=== PATIENT | male | born 1960 | race Caucasian/White ===

== ENCOUNTER → 2016-04-07 | Outpatient (CLI) | payer BC ==
--- NOTE | 2016-04-07 14:01 | US ---
EXAMINATION TYPE: US scrotum with doppler. TECHNIQUE: Multiple sonographic images of the scrotum were obtained. Color Doppler and spectral wavef orm analysis of the testicular arteries and veins. DATE OF EXAM: 04/07/2016 10:56 AM COMPARISON: NONE CLINICAL HISTORY: 55-year-old male, a routine physical the doctor felt a palpable finding at the mid lateral scrotal area. FINDINGS: TESTICLES: Right Testicle: 4.1 x 2.5 x 3.3 cm Left Testicle: 3.9 x 2.1 x 2.8 cm Testicles show homogeneous echotexture without hyperemia. Satisfactory arterial and venous flow is se en on both sides. EPIDIDYMIS HEAD: Right Epididymis: 1.8 x 1.0 cm Left Epididymis: 1.2 x 0.8 cm No hyperemia on either side. Presence of hydroceles: Small to moderate on both sides. Presence of varicoceles: Small varicoceles on the left. Scanning along the right lateral scrotal sac at the site of patient's kinesiology internship shows normal appearing e pididymal body and tail. IMPRESSION: 1. No sonographic evidence for testicular torsion or epididymoorchitis. 2. Small to moderate bilateral hydroceles and a small left-sided hydrocele. 3. Targeted scanning right lateral scrotum at the site of patient's concern shows normal appearing ep ididymal body and tail.
== END | disposition home or self-care (01) ==
LOC: RADUSWWP 10:17
PROVIDERS: ATTEND Internal Medicine
DX: N43.3 Hydrocele, unspecified (principal)
CPT/HCPCS: 76870; 93975

== ENCOUNTER 2016-05-19 06:58 | Day surgery (SDC) | payer BC ==
[2016-05-17 15:04] VITALS: BMI 31.9
[~2016-05-19 06:58] MED LIST: LACTATED RINGERS 1,000 ML IV SCH; LIDOCAINE 1% 20 ML VIAL (10MG/ML) FOR IV START INTRADERMA PRN
[2016-05-19] MEDS ORDERED: LACTATED RINGERS 1,000 ML IV ONE (07:10)
[2016-05-19 07:14] VITALS: TEMP 97
[2016-05-19 07:25] LABS: Glucose,Whole Blood 165 mg/dL (75-99)
[2016-05-19] MEDS ORDERED: PROPOFOL 10 MG/ML 20 ML VIAL IV ONE (08:33)
[2016-05-19] MEDS ORDERED: fentaNYL (PF) 50 MCG/ML 2 ML AMP ONE (08:33)
[2016-05-19] MEDS ORDERED: MIDAZOLAM 2 MG/2 ML VIAL ONE (08:33)
--- NOTE | 2016-05-19 08:55 | P.PCN ---
Date of Procedure: 05/19/16 Procedure(s) Performed: Procedure: Esophagogastroduodenoscopy and biopsy. Preoperative diagnosis: Dysphagia. Postoperative diagnosis: Mild gastritis. Preparation and sedation: Was provided by anesthesia. Brief clinical history: The patient is a 55-year-old male who I have evaluated in the office this month regarding intermittent episodes of dysphagia that he has had for the last 2 years. No significant reflux disease or alarm symptoms. He had around 10 episodes over the last 2 years. This evaluation is to assess for complicated reflux disease, mucosal ring or other pathology. Procedure: With the patient on his left lateral decubitus position and after informed consent and adequate sedation, I passed the Olympus-GIF 160 video upper endoscope through the cricopharyngeus down the esophagus. The esophagus appeared healthy with no obvious erosions, ulcers, strictures or Knox's esophagus. GE junction was around 41 cm from the incisors and there was no definite hiatal hernia. I did not notice any mucosal rings or other pathology. The endoscope was then passed into the stomach which was insufflated with air and inspected in detail including the retroflex view in the cardia. There was some mottling and erythema in the antrum but no ulcers or erosions. Pyloric channel, duodenal bulb, post bulbar area and descending duodenum showed minimal erythema. I obtained multiple biopsies from the duodenum, antrum and esophagus before the endoscope was withdrawn. I took a picture in the retroflex view in the cardia to demonstrate that there was no restriction around the endoscope in the distal esophagus. No dilation was indicated. The patient tolerated the procedure well. Plan: The patient was reassured. Will await biopsy results. If he continues to be symptomatic and especially if there is nutritional compromise, I would recommend motility studies in the future. He will follow up with you as planned.
[2016-05-19 09:04] LABS: Glucose,Whole Blood 145 mg/dL (75-99)
[2016-05-19 09:36] VITALS: BP 137/68; PULSE 66; RESP 18
== END 2016-05-19 09:58 | disposition home or self-care (01) ==
LOC: ORWHC2ENDO 06:58
DX: K29.50 Unspecified chronic gastritis without bleeding (principal); K20.9 Esophagitis, unspecified; G43.909 Migraine, unspecified, not intractable, without status migrainosus; Z79.82 Long term (current) use of aspirin; Z79.899 Other long term (current) drug therapy
CPT/HCPCS: 88305; 88342; 43239; J2250; J3010; J2704

== ENCOUNTER 2018-04-10 11:53 | Inpatient (IN) | payer BC ==
--- NOTE | 2018-04-10 12:45 | ED ---
General Adult HPI - General Chief complaint: Shortness of Breath Stated complaint: SOB, chest pain Time Seen by Provider: 04/10/18 12:15 Source: patient, RN notes reviewed Mode of arrival: ambulatory Limitations: no limitations - History of Present Illness Initial comments: This is a 57-year-old male who has past medical history significant for asthma. Dr. Bourne saw him in his office today and wanted the patient to come in to the emergency department to get admitted. Patient states she's had a cough over the last few days and some shortness of breath. Dr. Bourne saw the patient and gave him a breathing treatment as well as a chest x-ray and some steroids. Patient states he still is short of breath and feels very tight. Patient states he is coughing quite a bit but not coughing up a lot of sputum. Patient denies any abdominal pain patient denies nausea vomiting diarrhea. - Related Data Home Medications Medication Instructions Recorded Confirmed Kiiqudbvyu-BRK-[id number]-Codeine 1 tab PO BID PRN 05/17/16 04/10/18 [Fiorinal w/Cod 11-452-34-30MG] Naratriptan HCl [Naratriptan] 2.5 mg PO DAILY PRN 05/17/16 04/10/18 Losartan Potassium 100 mg PO DAILY 04/10/18 04/10/18 Rosuvastatin [Crestor] 10 mg PO DAILY 04/10/18 04/10/18 sitaGLIPtin PHOS/metFORMIN HCL 1 tab PO DAILY 04/10/18 04/10/18 [Janumet 50-1,000 mg Tablet] Allergies Allergy/AdvReac Type Severity Reaction Status Date / Time ANTIBIOTIC (UNKNOWN) Allergy Unknown Uncoded 04/10/18 13:39 Review of Systems ROS Statement: Those systems with pertinent positive or pertinent negative responses have been documented in the HPI. ROS Other: All systems not noted in ROS Statement are negative. Past Medical History Past Medical History: Asthma, Diabetes Mellitus Additional Past Medical History / Comment(s): MIGRAINES, PAST HX OF ASTHMA (10 YRS AGO), COUGH FOR LAST YEAR., DYSPHAGIA. , DIET CONTROLLED DIABETES. History of Any Multi-Drug Resistant Organisms: None Reported Past Surgical History: Orthopedic Surgery Additional Past Surgical History / Comment(s): MARCELA SHOULDER SURGERY, COLONOSCOPY 'S Past Anesthesia/Blood Transfusion Reactions: No Reported Reaction Past Psychological History: No Psychological Hx Reported Smoking Status: Never smoker Past Alcohol Use History: Occasional Past Drug Use History: None Reported - Past Family History Mother Family Medical History: Cancer Additional Family Medical History / Comment(s): BREAST CANCER General Exam - General Exam Comments Initial Comments: GENERAL: Patient is well-developed and well-nourished. Patient is nontoxic and well- hydrated and is in mild distress. I took the patient's temperature in the patient's temperature is 101.4. ENT: Neck is soft and supple. No significant lymphadenopathy is noted. Oropharynx is clear. Moist mucous membranes. Neck has full range of motion without eliciting any pain. EYES: The sclera were anicteric and conjunctiva were pink and moist. Extraocular movements were intact and pupils were equal round and reactive to light. Eyelids were unremarkable. PULMONARY: Patient has diffuse x-ray wheezing. Patient has crackles in the left base. CARDIOVASCULAR: There is a regular rate and rhythm without any murmurs gallops or rubs. ABDOMEN: Soft and nontender with normal bowel sounds. No palpable organomegaly was noted. There is no palpable pulsatile mass. SKIN: Skin is clear with no lesions or rashes and otherwise unremarkable. NEUROLOGIC: Patient is alert and oriented x3. Cranial nerves II through XII are grossly intact. Motor and sensory are also intact. Normal speech, volume and content. Symmetrical smile. MUSCULOSKELETAL: Normal extremities with adequate strength and full range of motion. No lower extremity swelling or edema. No calf tenderness. LYMPHATICS: No significant lymphadenopathy is noted PSYCHIATRIC: Normal psychiatric evaluation. Limitations: no limitations Course Vital Signs 04/10/18 04/10/18 04/10/18 12:14 12:49 13:00 Temperature 99.5 F 101.4 F H Pulse Rate 86 79 Respiratory 18 24 Rate Blood Pressure 146/87 152/91 O2 Sat by Pulse 98 97 Oximetry 04/10/18 04/10/18 04/10/18 13:15 13:30 14:00 Temperature Pulse Rate 88 93 Respiratory 18 Rate Blood Pressure 147/103 159/74 O2 Sat by Pulse Oximetry 04/10/18 04/10/18 04/10/18 14:30 15:00 15:30 Temperature Pulse Rate 98 78 76 Respiratory 14 21 19 Rate Blood Pressure 159/74 118/87 147/78 O2 Sat by Pulse 96 Oximetry 04/10/18 15:36 Temperature 99.4 F Pulse Rate Respiratory Rate Blood Pressure O2 Sat by Pulse Oximetry Medical Decision Making - Medical Decision Making EKG shows normal sinus rhythm at 84 bpm IN interval is 138 QRS is 122 QT interval 370 QTC is 437. Patient's EKG shows no ST segment elevation or depression. Patient does have Q waves in leads 3 and aVF. Chest x-ray showed no acute abnormality. I spoke with Dr. Gonzalez agreed to admit the patient I admitted the patient I consulted ER. Patient received steroids in the office I will continue steroids in patient. Also patient received albuterol the office as well as emergency department and he still continues to wheeze and I will continue that as an inpatient. - Lab Data Result diagrams: 04/10/18 13:14 04/10/18 13:14 Lab Results 04/10/18 04/10/18 04/10/18 Range/Units 13:14 13:14 13:14 WBC 6.6 (3.8-10.6) k/uL RBC 5.01 (4.30-5.90) m/uL Hgb 14.7 (13.0-17.5) gm/dL Hct 45.3 (39.0-53.0) % MCV 90.4 (80.0-100.0) fL MCH 29.3 (25.0-35.0) pg MCHC 32.4 (31.0-37.0) g/dL RDW 13.3 (11.5-15.5) % Plt Count 180 (150-450) k/uL Neutrophils % 64 % Lymphocytes % 17 % Monocytes % 11 % Eosinophils % 4 % Basophils % 1 % Neutrophils # 4.3 (1.3-7.7) k/uL Lymphocytes # 1.1 (1.0-4.8) k/uL Monocytes # 0.7 (0-1.0) k/uL Eosinophils # 0.2 (0-0.7) k/uL Basophils # 0.1 (0-0.2) k/uL PT (9.0-12.0) sec INR (<1.2) APTT (22.0-30.0) sec Sodium 137 (137-145) mmol/L Potassium 4.5 (3.5-5.1) mmol/L Chloride 103 (98-107) mmol/L Carbon Dioxide 24 (22-30) mmol/L Anion Gap 10 mmol/L BUN 9 (9-20) mg/dL Creatinine 0.91 (0.66-1.25) mg/dL Est GFR (CKD-EPI)AfAm >90 (>60 ml/min/1.73 sqM) Est GFR (CKD-EPI)NonAf >90 (>60 ml/min/1.73 sqM) Glucose 139 H (74-99) mg/dL Plasma Lactic Acid Liban 1.1 (0.7-2.0) mmol/L Calcium 9.0 (8.4-10.2) mg/dL Total Bilirubin 0.4 (0.2-1.3) mg/dL AST 42 (17-59) U/L ALT 62 (21-72) U/L Alkaline Phosphatase 51 (38-126) U/L Troponin I (0.000-0.034) ng/mL Total Protein 7.0 (6.3-8.2) g/dL Albumin 4.1 (3.5-5.0) g/dL Urine Color Urine Appearance (Clear) Urine pH (5.0-8.0) Ur Specific Ferguson (1.001-1.035) Urine Protein (Negative) Urine Glucose (UA) (Negative) Urine Ketones (Negative) Urine Blood (Negative) Urine Nitrite (Negative) Urine Bilirubin (Negative) Urine Urobilinogen (<2.0) mg/dL Ur Leukocyte Esterase (Negative) Urine RBC (0-5) /hpf Urine WBC (0-5) /hpf Urine Mucus (None) /hpf 04/10/18 04/10/18 04/10/18 Range/Units 13:14 13:14 13:14 WBC (3.8-10.6) k/uL RBC (4.30-5.90) m/uL Hgb (13.0-17.5) gm/dL Hct (39.0-53.0) % MCV (80.0-100.0) fL MCH (25.0-35.0) pg MCHC (31.0-37.0) g/dL RDW (11.5-15.5) % Plt Count (150-450) k/uL Neutrophils % % Lymphocytes % % Monocytes % % Eosinophils % % Basophils % % Neutrophils # (1.3-7.7) k/uL Lymphocytes # (1.0-4.8) k/uL Monocytes # (0-1.0) k/uL Eosinophils # (0-0.7) k/uL Basophils # (0-0.2) k/uL PT 10.1 (9.0-12.0) sec INR 0.9 (<1.2) APTT 25.9 (22.0-30.0) sec Sodium (137-145) mmol/L Potassium (3.5-5.1) mmol/L Chloride (98-107) mmol/L Carbon Dioxide (22-30) mmol/L Anion Gap mmol/L BUN (9-20) mg/dL Creatinine (0.66-1.25) mg/dL Est GFR (CKD-EPI)AfAm (>60 ml/min/1.73 sqM) Est GFR (CKD-EPI)NonAf (>60 ml/min/1.73 sqM) Glucose (74-99) mg/dL Plasma Lactic Acid Liban (0.7-2.0) mmol/L Calcium (8.4-10.2) mg/dL Total Bilirubin (0.2-1.3) mg/dL AST (17-59) U/L ALT (21-72) U/L Alkaline Phosphatase (38-126) U/L Troponin I <0.012 (0.000-0.034) ng/mL Total Protein (6.3-8.2) g/dL Albumin (3.5-5.0) g/dL Urine Color Yellow Urine Appearance Clear (Clear) Urine pH 6.0 (5.0-8.0) Ur Specific Ferguson 1.016 (1.001-1.035) Urine Protein Negative (Negative) Urine Glucose (UA) Trace H (Negative) Urine Ketones Negative (Negative) Urine Blood Trace H (Negative) Urine Nitrite Negative (Negative) Urine Bilirubin Negative (Negative) Urine Urobilinogen <2.0 (<2.0) mg/dL Ur Leukocyte Esterase Negative (Negative) Urine RBC 4 (0-5) /hpf Urine WBC 1 (0-5) /hpf Urine Mucus Occasional H (None) /hpf Critical Care Time Critical Care Time: Yes Total Critical Care Time: 35 Disposition Clinical Impression: Asthma with exacerbation, Acute bronchitis Disposition: ADMITTED IP TO THIS HOSP Referrals: Braden Gonzalez MD [Primary Care Provider] - 1-2 days Time of Disposition: 16:10
[2018-04-10] MEDS ORDERED: IBUPROFEN 600 MG TAB PO STA (12:52)
[2018-04-10] MEDS ORDERED: ACETAMINOPHEN TAB 500 MG TAB PO STA (12:52)
[2018-04-10] MEDS ORDERED: ALBUTEROL NEBULIZED (CONC) 5 MG, SODIUM CHLORIDE 0.9% NEBULIZ 3 ML INHALATION STA ×2 (12:53)
[2018-04-10] MEDS ORDERED: cefTRIAXone 2,000 MG in SODIUM CHLORIDE 0.9% 100 ML IVPB STA (12:54)
[2018-04-10] MEDS ORDERED: ALBUTEROL NEBULIZED 2.5 MG/3 ML INHALATION STA (13:08)
[2018-04-10] MEDS: SODIUM CHLORIDE 0.9% 500 ML 500 ML IV SCH ×2 (13:40→14:59)
[2018-04-10 13:49] LABS: ALT 62 U/L (21-72); AST 42 U/L (17-59); Albumin 4.1 g/dL (3.5-5.0); Alkaline Phosphatase 51 U/L (38-126); Anion Gap 10 mmol/L; Blood Urea Nitrogen 9 mg/dL (9-20); Carbon Dioxide 24 mmol/L (22-30); Chloride 103 mmol/L (98-107); Glucose 139 mg/dL (74-99); Potassium 4.5 mmol/L (3.5-5.1); Sodium 137 mmol/L (137-145); Total Bilirubin 0.4 mg/dL (0.2-1.3)
[2018-04-10 13:54] LABS: INR 0.9 (<1.2); Partial Thromboplastin Time 25.9 sec (22.0-30.0); Prothrombin Time 10.1 sec (9.0-12.0)
[2018-04-10 13:57] LABS: Basophils # (A) 0.1 k/uL (0-0.2); Basophils % (A) 1 %; Eosinophils # (A) 0.2 k/uL (0-0.7); Eosinophils % (A) 4 %; HCT 45.3 % (39.0-53.0); HGB 14.7 gm/dL (13.0-17.5); Lymphocytes # (A) 1.1 k/uL (1.0-4.8); Lymphocytes % (A) 17 %; MCH 29.3 pg (25.0-35.0); MCHC 32.4 g/dL (31.0-37.0); MCV 90.4 fL (80.0-100.0); Monocytes # (A) 0.7 k/uL (0-1.0); Monocytes % (A) 11 %; Neutrophils # (A) 4.3 k/uL (1.3-7.7); Neutrophils % (A) 64 %; Platelet Count 180 k/uL (150-450); RBC 5.01 m/uL (4.30-5.90); RDW 13.3 % (11.5-15.5); WBC 6.6 k/uL (3.8-10.6)
[2018-04-10 14:06] LABS: Appearance,Urine Clear (Clear); Bilirubin,Urine Negative (Negative); Blood,Urine Trace (Negative); Color,Urine Yellow; Glucose,Urine (UA) Trace (Negative); Ketones,Urine Negative (Negative); Leukocyte Esterase,Urine Negative (Negative); Mucus,Urine Occasional /hpf; Nitrite,Urine Negative (Negative); Protein,Urine Negative (Negative); RBC,Urine 4 /hpf (0-5); Specific Gravity,Urine 1.016 (1.001-1.035); Urobilinogen,Urine <2.0 mg/dL (<2.0); WBC,Urine 1 /hpf (0-5)
--- NOTE | 2018-04-10 14:29 | XR ---
EXAMINATION TYPE: XR chest 2V DATE OF EXAM: 04/10/2018 COMPARISON: Prior chest x-ray January 27, 2013. Prior CT April 09, 2014. Pulmonary Chest x-ray thad ier today. HISTORY: Fever. TECHNIQUE: Frontal and lateral views of the chest are obtained. FINDINGS: There is some chronic parenchymal change without suspicious focal air space opacity, pleur al effusion, or pneumothorax seen. The cardiac silhouette size is within normal limits. The osseou s structures are intact. Overlying EKG leads are noted. IMPRESSION: No new suspicious focal acute infiltrate.
[2018-04-10] MEDS ORDERED: ALBUTEROL NEB (CONC) 2.5 MG/0.5 ML INHALATION SCH (16:00)
[2018-04-10] MEDS ORDERED: AZITHROMYCIN 500 MG in SODIUM CHLORIDE 0.9% 250 ML IVPB STA (16:14)
[2018-04-10] MEDS ORDERED: PNEUMONIA PROTOCOL UTILIZED 1 EACH MISC PO PRN (16:14)
[2018-04-10] MEDS: ALBUTEROL NEBULIZED 2.5 MG/3 ML INHALATION SCH ×2 (16:30→19:44)
[2018-04-10] MEDS ORDERED: SUMAtriptan SUCCINATE 50 MG TAB PO PRN (16:40)
[2018-04-10] MEDS ORDERED: BENZOCAINE/MENTHOL LOZENG 1 EACH LOZENGE MUCOUS MEM PRN (17:01)
[2018-04-10] MEDS ORDERED: NALOXONE 0.4 MG/ML 1 ML VIAL IV PRN (17:01)
[2018-04-10] MEDS ORDERED: ACETAMINOPHEN TAB 325 MG TAB PO PRN (17:01)
[2018-04-10] MEDS ORDERED: traMADol 50 MG TAB PO PRN (17:01)
[2018-04-10] MEDS ORDERED: ONDANSETRON 4 MG/2 ML VIAL IVP PRN (17:01)
--- NOTE | 2018-04-10 17:39 | P.HPIM ---
History of Present Illness H&P Date: 04/10/18 (Acute asthmatic exacerbation with the purulent tracheobronchitis.) Chief Complaint: Harsh cough with expectoration greenish yellowish with shortness of breath History and physical dictation by Dr. Riaz M.D. [facility]. ALLERGY: Amoxicillin, Augmentin, penicillin, lisinopril, Lipitor. Chief complaint shortness of breath with feeling of tightness in the chest. And wheezing audible. History of present illness: 57 years old white male started on last Monday with coughing with some expectoration as well as wheezing progressed, patient controlled Dr. Bourne office and today Dr. Bourne did see him and send him to the emergency room at [facility] for admission. Subsequently Dr. Ross called me the primary care to admit the patient. I discussed it with the patient he stated that since Monday he started to have low-grade temperature and progressing in the wheezing and become on Adderall and he could not degrees he felt as well tight in the chest but no chest pain and no radiation of the pain to the neck or the arm but he could not take his breath, he called Dr. Rodriguez's office, they saw him Dr. Bourne and he send him to the emergency room after he received a chest x-ray and some injection over 60 right. Past medical history: Hyperlipidemia., Migraine headache, hypertension, and diabetes mellitus. Medication: He taken Fiorinal with codeine 1 tablet by mouth twice a day when necessary, he also taken naratriptan 2.5 mg by mouth daily when necessary, losartan 100 mg by mouth daily, Crestor 10 mg by mouth daily, sitagliptin/ metformin mg once a day for diabetes mellitus. He has ALLERGY to antibiotic but he doesn't know what and we will be rechecking the office chart. Family history noncontributory patient is and have children. Mother has cancer and history of breast cancer in the family. Past medical history bilateral shoulder surgery, colonoscopy, no smoke, no psychological problem no blood transfusion reaction. Review of system: 14. Has been reviewed however the actual problem orally was with the lung and wheezing audible and associated with shortness of breath. Examination [id number]. Patient is conscious alert oriented was seen in the emergency room modul #13. His at bedside. Patient is conscious alert oriented 3 able to tell the history. HEENT: Head was normocephalic and atraumatic pupil was equal reactive, hearing was normal, pharynx no erythema no sore throat, minimal postnasal discharge, Neck was supple no JVD no thyromegaly no lymphadenopathy trachea midline. Chest: Inspiratory and expiratory wheezes with coughing up occasional phlegm right with the low grade temperature. Heart: Regular sinus rhythm, no chest pain, Abdomen soft positive bowel sounds no organ enlargement. Extremities no edema and positive pulses. Genitourinary: No symptoms Neurologically: No lateralizing signs, no shakiness or tremors, cranial nerves is intact. Conscious alert oriented 3. Musculoskeletal currently total: Feeling sick with general malaise and weakness. Skin: No rashes. Assessment: None Acute asthmatic bronchitis with exacerbation #2 tracheobronchitis #3 post viral syndrome. #4 hyperlipidemia #5 migraine headache. #5 diabetes mellitus. #6 hypertension. #7 migraine headache intermittent. Plan: #1 bronchodilator number to steroids #3 inhalation therapy with budesonide. Number for continuation of these medication with a history of migraine headache antibiotic, currently on azithromycin and Rocephin. Patient admitted from Dr. Rodriguez office, pulmonary consultation with the pulmonary and critical resounding this week/Dr. Thomas . Monitor diabetes mellitus with C glucose, with insulin to scale with NovoLog./ Humalog. Past Medical History Past Medical History: Asthma, Diabetes Mellitus Additional Past Medical History / Comment(s): MIGRAINES, PAST HX OF ASTHMA (10 YRS AGO), COUGH FOR LAST YEAR., DYSPHAGIA. , DIET CONTROLLED DIABETES. History of Any Multi-Drug Resistant Organisms: None Reported Past Surgical History: Orthopedic Surgery Additional Past Surgical History / Comment(s): MARCELA SHOULDER SURGERY, COLONOSCOPY 'S Past Anesthesia/Blood Transfusion Reactions: No Reported Reaction Past Psychological History: No Psychological Hx Reported Smoking Status: Never smoker Past Alcohol Use History: Occasional Past Drug Use History: None Reported - Past Family History Mother Family Medical History: Cancer Additional Family Medical History / Comment(s): BREAST CANCER Medications and Allergies Home Medications Medication Instructions Recorded Confirmed Type Vbrnuxqgkn-JNF-Htmfxha-Codeine 1 tab PO BID PRN 05/17/16 04/10/18 History [Fiorinal w/Cod 13-882-30-30MG] Naratriptan HCl [Naratriptan] 2.5 mg PO DAILY PRN 05/17/16 04/10/18 History Losartan Potassium 100 mg PO DAILY 04/10/18 04/10/18 History Rosuvastatin [Crestor] 10 mg PO DAILY 04/10/18 04/10/18 History sitaGLIPtin PHOS/metFORMIN HCL 1 tab PO DAILY 04/10/18 04/10/18 History [Janumet 50-1,000 mg Tablet] Allergies Allergy/AdvReac Type Severity Reaction Status Date / Time ANTIBIOTIC (UNKNOWN) Allergy Unknown Uncoded 04/10/18 13:39 Physical Exam Vitals: Vital Signs Temp Pulse Resp BP Pulse Ox 04/10/18 15:36 99.4 F 04/10/18 15:30 76 19 147/78 04/10/18 15:00 78 21 118/87 04/10/18 14:30 98 14 159/74 96 04/10/18 14:00 159/74 04/10/18 13:30 93 18 147/103 04/10/18 13:15 88 04/10/18 13:00 79 24 152/91 97 04/10/18 12:49 101.4 F H 04/10/18 12:14 99.5 F 86 18 146/87 98 Intake and Output 04/10/18 04/10/18 04/10/18 06:59 14:59 22:59 Other: Weight 95.254 kg Results CBC & Chem 7: 04/10/18 13:14 04/10/18 13:14 Labs: Abnormal Lab Results - Last 24 Hours (Table) 04/10/18 04/10/18 Range/Units 13:14 13:14 Glucose 139 H (74-99) mg/dL Urine Glucose (UA) Trace H (Negative) Urine Blood Trace H (Negative) Urine Mucus Occasional H (None) /hpf
[2018-04-10] MEDS: methylPREDNISolone SOD SUCCI 125 MG/2 ML VIAL IV SCH (18:49)
[2018-04-10] MEDS: SODIUM CHLORIDE 0.9% 1,000 ML IV SCH (18:50)
[2018-04-10] MEDS: BUDESONIDE 0.5 MG/2 ML NEBU INHALATION SCH (19:44)
[2018-04-10] MEDS: INSULIN ASPART 100 UNIT/ML 1 ML 10 ML VIAL SQ SCH (21:41)
[2018-04-10 21:42] LABS: Glucose,Whole Blood 232 mg/dL (75-99)
[2018-04-11] MEDS: methylPREDNISolone SOD SUCCI 125 MG/2 ML VIAL IV SCH ×5 (00:57→23:39)
[2018-04-11 05:43] LABS: Hemoglobin A1C 7.1 % (4.0-6.0)
[2018-04-11] MEDS: BUDESONIDE 0.5 MG/2 ML NEBU INHALATION SCH (07:04)
[2018-04-11] MEDS: IPRATROPIUM-ALBUTEROL 3 ML NEB INHALATION PRN ×2 (07:04→11:08)
[2018-04-11] MEDS: ALBUTEROL NEBULIZED 2.5 MG/3 ML INHALATION SCH ×5 (07:04→19:46)
[2018-04-11 07:45] LABS: Glucose,Whole Blood 206 mg/dL (75-99)
[2018-04-11] MEDS: INSULIN ASPART 100 UNIT/ML 1 ML 10 ML VIAL SQ SCH ×4 (07:52→20:53)
[2018-04-11] MEDS: ATORVASTATIN 20 MG TAB PO SCH (08:08)
[2018-04-11] MEDS: LOSARTAN 50 MG TAB PO SCH (08:09)
[2018-04-11] MEDS: LINAGLIPTIN 5 MG TABLET PO SCH (08:09)
[2018-04-11] MEDS: ENOXAPARIN 40 MG/0.4 ML SYRINGE SQ SCH (08:09)
--- NOTE | 2018-04-11 08:27 | XR ---
EXAMINATION TYPE: XR chest 2V DATE OF EXAM: 04/11/2018 COMPARISON: 04/10/2018 INDICATION: Pneumonia, cough and congestion TECHNIQUE: Frontal and lateral views of the chest are obtained. FINDINGS: The heart size is normal. The pulmonary vasculature is normal. The lungs are clear. IMPRESSION: 1. No acute pulmonary process.
[2018-04-11] MEDS: BUTA/APAP/CAF/COD 50-325-40-30 CAP PO PRN ×2 (09:17→22:32)
[2018-04-11 10:03] LABS: Basophils % (A) 0 %; Eosinophils % (A) 0 %; HCT 46.8 % (39.0-53.0); HGB 15.3 gm/dL (13.0-17.5); Lymphocytes # (A) 0.6 k/uL (1.0-4.8); Lymphocytes % (A) 7 %; MCH 30.7 pg (25.0-35.0); MCHC 32.7 g/dL (31.0-37.0); Mean Platelet Volume 8.5; Monocytes # (A) 0.2 k/uL (0-1.0); Monocytes % (A) 2 %; Neutrophils # (A) 8.2 k/uL (1.3-7.7); Neutrophils % (A) 90 %; Platelet Count 202 k/uL (150-450); RBC 4.98 m/uL (4.30-5.90); RDW 13.4 % (11.5-15.5); WBC 9.1 k/uL (3.8-10.6)
[2018-04-11 10:16] LABS: ALT 49 U/L (21-72); AST 32 U/L (17-59); Albumin 4.2 g/dL (3.5-5.0); Alkaline Phosphatase 58 U/L (38-126); Anion Gap 13 mmol/L; Blood Urea Nitrogen 12 mg/dL (9-20); Calcium 9.7 mg/dL (8.4-10.2); Carbon Dioxide 23 mmol/L (22-30); Chloride 105 mmol/L (98-107); Glucose 290 mg/dL (74-99); Magnesium 2.2 mg/dL (1.6-2.3); Sodium 141 mmol/L (137-145); Total Bilirubin 0.3 mg/dL (0.2-1.3); Total Protein 7.3 g/dL (6.3-8.2)
[2018-04-11 11:55] LABS: Glucose,Whole Blood 254 mg/dL (75-99)
--- NOTE | 2018-04-11 12:25 | P.PN ---
Subjective Progress Note Date: 04/11/18 (Acute asthmatic bronchitis with exacerbation) Principal diagnosis: #1 acute asthmatic bronchitis with the exacerbation. #Diabetes mellitus type 2 with hyperglycemia. 3 hypertension. Progress notes: Patient seen and evaluated [id number] discussed with the patient and his . Patient seen today by Dr. Flores pulmonary physician as well, patient admitted through the emergency room by Dr. Rordiguez from the office. Vital sign temperature 97.5 pulse 59 regular sinus respiratory rate 15/m and blood pressure 124/67 and the saturation 95%. On the exam: HEENT negative no sore throat, still significant increase in inspiratory and expiratory, his oxygen saturation improved after the inhalation therapy to 95. Oropharynx negative, hearing normal. Neck was supple no JVD no thyromegaly no lymphadenopathy trachea midline. Chest: Inspiratory and expiratory wheezes bilateral. No dullness on percussion. Coughing. Heart: Regular sinus rhythm compensated. Abdomen: Soft positive bowel sounds no organ enlargement. Extremities no edema and positive pulses. Neurologically: Stable no lateralizing sign. He had headache migraine this morning and he received medication for it. Assessment: Acute tracheobronchitis with exacerbation associated with severe shortness of breath, treated in the office at Dr. Diez and send to the hospital for admission because of the severe shortness of breath. Hypertension Hyperlipidemia. Plan: Continue current medication with and cough syrup as well ALLERGY: AMOXICILLIN, Augmentin, penicillin, lisinopril, Lipitor. Objective - Vital Signs Vital signs: Vital Signs Temp 97.5 F L 04/11/18 06:04 Pulse 72 04/11/18 11:18 Resp 18 04/11/18 06:04 BP 144/67 04/11/18 06:04 Pulse Ox 95 04/11/18 06:04 Intake & Output 04/10/18 04/11/18 04/11/18 18:59 06:59 18:59 Output Total 1000 250 Balance -1000 -250 Weight 95.254 kg Output: Urine 1000 250 Other: # Voids 1 - Labs CBC & Chem 7: 04/11/18 09:07 04/11/18 09:07 Labs: Abnormal Lab Results - Last 24 Hours (Table) 04/10/18 04/10/18 04/10/18 Range/Units 13:14 13:14 13:14 Neutrophils # (1.3-7.7) k/uL Lymphocytes # (1.0-4.8) k/uL Glucose 139 H (74-99) mg/dL POC Glucose (mg/dL) (75-99) mg/dL Hemoglobin A1c 7.1 H (4.0-6.0) % Urine Glucose (UA) Trace H (Negative) Urine Blood Trace H (Negative) Urine Mucus Occasional H (None) /hpf 04/10/18 04/11/18 04/11/18 Range/Units 21:33 07:12 09:07 Neutrophils # 8.2 H (1.3-7.7) k/uL Lymphocytes # 0.6 L (1.0-4.8) k/uL Glucose (74-99) mg/dL POC Glucose (mg/dL) 232 H 206 H (75-99) mg/dL Hemoglobin A1c (4.0-6.0) % Urine Glucose (UA) (Negative) Urine Blood (Negative) Urine Mucus (None) /hpf 04/11/18 04/11/18 Range/Units 09:07 11:52 Neutrophils # (1.3-7.7) k/uL Lymphocytes # (1.0-4.8) k/uL Glucose 290 H (74-99) mg/dL POC Glucose (mg/dL) 254 H (75-99) mg/dL Hemoglobin A1c (4.0-6.0) % Urine Glucose (UA) (Negative) Urine Blood (Negative) Urine Mucus (None) /hpf Microbiology - Last 24 Hours (Table) 04/10/18 13:14 Urine Culture - Preliminary Urine,Clean Catch
[2018-04-11] MEDS ORDERED: PROMETHAZ-COD 6.25-10 MG/5 ML 5 ML CUP PO PRN (12:26)
--- NOTE | 2018-04-11 13:07 | P.CNPUL ---
History of Present Illness Consult date: 04/11/18 Requesting physician: Braden Gonzalez Reason for consult: dyspnea, cough, asthma Chief complaint: Chest tightness, wheezing, fever History of present illness: This a 57-year-old white male patient of Dr. Gonzalez, with past medical history of mild intermittent bronchial asthma, type 2 diabetes mellitus, migraine headaches, hyperlipidemia, hypertension, vitamin D deficiency, benign prostatic hypertrophy. Patient states his asthma is usually under good control. He does not have any maintenance inhalers, and not even the Ventolin inhaler, as he has not had any problems with asthma exacerbations and this is his first hospitalization for breathing related problem. Patient sees Dr. Rodriguez in the pulmonary clinic, he has been sick for a week, with chest tightness, shortness of breath, wheezing, and overall not feeling well, he did have a fever of 101.4 F, chest x-ray was taken in the office and did not show any acute pulmonary process, patient was given breathing treatments in the 80 mg of Depo-Medrol intramuscularly, with no improvement, and patient was erect a to the emergency department for further evaluation and treatment. Influenza screen was negative. In addition patient has been complaining of weakness, fatigue, and some lightheadedness. Denied any nausea, vomiting or diarrhea. His cough is nonproductive, but patient is coughing quite a bit. Patient is a lifetime nonsmoker. Repeat chest x-ray showed no new suspicious focal acute infiltrate. Today's follow-up chest x-ray was negative as well. Lab work showed WBC of 6.6, hemoglobin of 14.7, INR 0.9, electrolytes and renal profile were within normal limits. Urinalysis was negative for infection. Troponin was negative 1 , plasma lactic acid is 1.1 LFTs were within normal limits. Patient was started on empiric antibiotic, nebulized bronchodilators, and IV steroids as well as cough syrup. He seen this patient consultation for acute exacerbation of mild intermittent bronchial asthma. Review of Systems All systems: negative Constitutional: Denies chills, Denies fever Eyes: denies blurred vision, denies pain Ears, nose, mouth and throat: Denies headache, Denies sore throat Cardiovascular: Denies chest pain, Denies shortness of breath Respiratory: Reports congestion, Reports cough with sputum, Reports dyspnea, Reports respiratory infections, Reports wheezing, Denies cough Gastrointestinal: Denies abdominal pain, Denies diarrhea, Denies nausea, Denies vomiting Musculoskeletal: Denies myalgias Integumentary: Denies pruritus, Denies rash Neurological: Denies numbness, Denies weakness Psychiatric: Denies anxiety, Denies depression Endocrine: Denies fatigue, Denies weight change Past Medical History Past Medical History: Asthma, Diabetes Mellitus Additional Past Medical History / Comment(s): MIGRAINES, PAST HX OF ASTHMA (10 YRS AGO), COUGH FOR LAST YEAR.intermittent episodes of dysphagia had egd- gastritis , DIET CONTROLLED DIABETES.colon polyps-benign History of Any Multi-Drug Resistant Organisms: None Reported Past Surgical History: Orthopedic Surgery Additional Past Surgical History / Comment(s): MARCELA SHOULDER SURGERY, COLONOSCOPY 'S, egd w/ bx-pt stated was neg Past Anesthesia/Blood Transfusion Reactions: No Reported Reaction Smoking Status: Never smoker - Past Family History Mother Family Medical History: Cancer Additional Family Medical History / Comment(s): BREAST CANCER w/ mets Father Family Medical History: CVA/TIA Additional Family Medical History / Comment(s): Medications and Allergies Home Medications Medication Instructions Recorded Confirmed Type Mtmkcawxmh-AMU-Kssesht-Codeine 1 tab PO BID PRN 05/17/16 04/10/18 History [Fiorinal w/Cod 41-810-90-30MG] Naratriptan HCl [Naratriptan] 2.5 mg PO DAILY PRN 05/17/16 04/10/18 History Losartan Potassium 100 mg PO DAILY 04/10/18 04/10/18 History Rosuvastatin [Crestor] 10 mg PO DAILY 04/10/18 04/10/18 History sitaGLIPtin PHOS/metFORMIN HCL 1 tab PO DAILY 04/10/18 04/10/18 History [Janumet 50-1,000 mg Tablet] Allergies Allergy/AdvReac Type Severity Reaction Status Date / Time ANTIBIOTIC (UNKNOWN) Allergy Unknown Uncoded 04/10/18 13:39 Physical Exam Vitals: Vital Signs Temp Pulse Pulse Resp BP BP Pulse Ox 04/11/18 11:18 72 04/11/18 11:09 72 04/11/18 07:24 72 04/11/18 07:04 68 04/11/18 06:04 97.5 F L 59 L 18 144/67 95 04/10/18 21:41 98.2 F 90 16 110/67 96 04/10/18 19:58 72 16 04/10/18 19:45 70 16 95 04/10/18 19:03 97.5 F L 81 18 138/74 96 04/10/18 15:36 99.4 F 04/10/18 15:30 76 19 147/78 04/10/18 15:00 78 21 118/87 04/10/18 14:30 98 14 159/74 96 04/10/18 14:00 159/74 04/10/18 13:30 93 18 147/103 04/10/18 13:15 88 04/10/18 13:00 79 24 152/91 97 04/10/18 12:49 101.4 F H Intake and Output 04/10/18 04/11/18 04/11/18 22:59 06:59 14:59 Output Total 400 600 250 Balance -400 -600 -250 Output: Urine 400 600 250 Other: # Voids 1 GENERAL EXAM: Alert, pleasant, 57-year-old white male comfortable in no apparent distress. HEAD: Normocephalic/atraumatic. EYES: Normal reaction of pupils, equal size. Conjunctiva pink, sclera white. NOSE: Clear with pink turbinates. THROAT: No erythema or exudates. NECK: No masses, no JVD, no thyroid enlargement, no adenopathy. CHEST: No chest wall deformity. Symmetrical expansion. LUNGS: Equal air entry with diffuse wheezes CVS: Regular rate and rhythm, normal S1 and S2, no gallops, no murmurs, no rubs ABDOMEN: Soft, nontender. No hepatosplenomegaly, normal bowel sounds, no guarding or rigidity. EXTREMITIES: No clubbing, no edema, no cyanosis, 2+ pulses and upper and lower extremities. MUSCULOSKELETAL: Muscle strength and tone normal. SPINE: No scoliosis or deformity SKIN: No rashes CENTRAL NERVOUS SYSTEM: Alert and oriented -3. No focal deficits, tone is normal in all 4 extremities. PSYCHIATRIC: Alert and oriented -3. Appropriate affect. Intact judgment and insight. Results - Laboratory Findings CBC and BMP: 04/11/18 09:07 04/11/18 09:07 PT/INR, D-dimer PT 10.1 sec (9.0-12.0) 04/10/18 13:14 INR 0.9 (<1.2) 04/10/18 13:14 Abnormal lab findings: Abnormal Labs 04/10/18 04/10/18 04/10/18 13:14 13:14 13:14 Neutrophils # Lymphocytes # Glucose 139 H POC Glucose (mg/dL) Hemoglobin A1c 7.1 H Urine Glucose (UA) Trace H Urine Blood Trace H Urine Mucus Occasional H 04/10/18 04/11/18 04/11/18 21:33 07:12 09:07 Neutrophils # 8.2 H Lymphocytes # 0.6 L Glucose POC Glucose (mg/dL) 232 H 206 H Hemoglobin A1c Urine Glucose (UA) Urine Blood Urine Mucus 04/11/18 04/11/18 09:07 11:52 Neutrophils # Lymphocytes # Glucose 290 H POC Glucose (mg/dL) 254 H Hemoglobin A1c Urine Glucose (UA) Urine Blood Urine Mucus - Diagnostic Findings Chest x-ray: report reviewed, image reviewed Additional studies: EKG reviewed Assessment and Plan Plan: Assessment: #1. Acute exacerbation of mild intermittent bronchial asthma. Chest x-rays in the pulmonary clinic, and those that were done in the hospital on 04/10/2018 and follow-up on 04/11/2018 did not show any evidence of acute pulmonary process #2. Fever, likely related to a viral infection, influenza screen was negative #3. Diabetes mellitus type 2 #4. Migraine headaches #5. Lifetime nonsmoker #6. Hypertension #7. Hyperlipidemia #8. Benign prostate hypertrophy Plan: Continue current medical treatment, continue nebulized treatments, IV steroids, and current antibiotics, patient is afebrile, blood culture has been collected and sent, and is pending, sputum culture has not been collected, urine culture is pending. Chest x-rays have been reviewed with Dr. Hamm, did not show any acute pulmonary process. Continue current antibiotic coverage, continue Pulmicort, will add Perforomist. I performed a history & physical examination of the patient and discussed their management with my nurse practitioner, Kell Samuel. I reviewed the nurse practitioner's note and agree with the documented findings and plan of care. Lung sounds are positive for diffuse wheezes throughout the lung burgos. The findings and the impression was discussed with the patient. I attest to the documentation by the nurse practitioner. Time with Patient: Greater than 30
[2018-04-11 15:15] VITALS: BMI 31.9
[2018-04-11] MEDS ORDERED: AZITHROMYCIN 500 MG TAB PO SCH (16:00)
[2018-04-11] MEDS: FORMOTEROL FUMARATE 20 MCG/2 ML NEBU INHALATION SCH ×2 (19:13→19:46)
[2018-04-11] MEDS: BUDESONIDE 1 MG/2 ML NEBU INHALATION SCH ×2 (19:13→19:46)
[2018-04-11] MEDS: SODIUM CHLORIDE 0.9% 1,000 ML IV SCH (20:33)
[2018-04-11 20:45] LABS: Glucose,Whole Blood 302 mg/dL (75-99)
[2018-04-12] MEDS: methylPREDNISolone SOD SUCCI 125 MG/2 ML VIAL IV SCH ×2 (06:31→11:56)
[2018-04-12] MEDS: ALBUTEROL NEBULIZED 2.5 MG/3 ML INHALATION SCH ×2 (06:52→11:04)
[2018-04-12] MEDS: BUDESONIDE 1 MG/2 ML NEBU INHALATION SCH (06:52)
[2018-04-12] MEDS: FORMOTEROL FUMARATE 20 MCG/2 ML NEBU INHALATION SCH (06:52)
[2018-04-12] MEDS: LOSARTAN 50 MG TAB PO SCH (07:38)
[2018-04-12] MEDS: ENOXAPARIN 40 MG/0.4 ML SYRINGE SQ SCH (07:38)
[2018-04-12] MEDS: LINAGLIPTIN 5 MG TABLET PO SCH (07:38)
[2018-04-12] MEDS: ATORVASTATIN 20 MG TAB PO SCH (07:38)
[2018-04-12] MEDS: INSULIN ASPART 100 UNIT/ML 1 ML 10 ML VIAL SQ SCH ×2 (07:39→12:13)
[2018-04-12 07:46] LABS: Glucose,Whole Blood 239 mg/dL (75-99)
[2018-04-12 07:48] VITALS: BP 125/60; RESP 18; TEMP 97.1
[2018-04-12 11:07] VITALS: PULSE 78
[2018-04-12 12:12] LABS: Glucose,Whole Blood 231 mg/dL (75-99)
--- NOTE | 2018-04-12 13:33 | P.PN ---
Subjective Progress Note Date: 04/12/18 Principal diagnosis: Chest tightness, wheezing, fever, exacerbation of mild intermittent bronchial asthma This a 57-year-old white male patient of Dr. Gonzalez, with past medical history of mild intermittent bronchial asthma, type 2 diabetes mellitus, migraine headaches, hyperlipidemia, hypertension, vitamin D deficiency, benign prostatic hypertrophy. Patient states his asthma is usually under good control. He does not have any maintenance inhalers, and not even the Ventolin inhaler, as he has not had any problems with asthma exacerbations and this is his first hospitalization for breathing related problem. Patient sees Dr. Rodriguez in the pulmonary clinic, he has been sick for a week, with chest tightness, shortness of breath, wheezing, and overall not feeling well, he did have a fever of 101.4 F, chest x-ray was taken in the office and did not show any acute pulmonary process, patient was given breathing treatments in the 80 mg of Depo-Medrol intramuscularly, with no improvement, and patient was erect a to the emergency department for further evaluation and treatment. Influenza screen was negative. In addition patient has been complaining of weakness, fatigue, and some lightheadedness. Denied any nausea, vomiting or diarrhea. His cough is nonproductive, but patient is coughing quite a bit. Patient is a lifetime nonsmoker. Repeat chest x-ray showed no new suspicious focal acute infiltrate. Today's follow-up chest x-ray was negative as well. Lab work showed WBC of 6.6, hemoglobin of 14.7, INR 0.9, electrolytes and renal profile were within normal limits. Urinalysis was negative for infection. Troponin was negative 1 , plasma lactic acid is 1.1 LFTs were within normal limits. Patient was started on empiric antibiotic, nebulized bronchodilators, and IV steroids as well as cough syrup. He seen this patient consultation for acute exacerbation of mild intermittent bronchial asthma. On 04/12/2018 patient seen in follow-up on medical surgical floor, breathing easier today, less bronchospastic, room air pulse ox is 97%, afebrile, hemodynamically stable, blood and urine culture showed no growth, no new labs or chest x-rays today. Patient has been treated with oral Zithromax, IV Rocephin, Pulmicort, Perforomist, and nebulized bronchodilators and IV steroids , he is improving. He is getting some cough syrup. He is stable, anticipate discharge home today. Objective - Vital Signs Vital signs: Vital Signs Temp 97.1 F L 04/12/18 07:00 Pulse 78 04/12/18 11:15 Resp 18 04/12/18 08:00 BP 125/60 04/12/18 07:00 Pulse Ox 97 04/12/18 07:00 Intake & Output 04/11/18 04/12/18 04/12/18 18:59 06:59 18:59 Intake Total 200 Output Total 250 320 Balance -250 200 -320 Weight 95.254 kg Intake: Oral 200 Output: Urine 250 320 Other: # Voids 2 1 - Exam GENERAL EXAM: Alert, pleasant, 57-year-old white male comfortable in no apparent distress. HEAD: Normocephalic/atraumatic. EYES: Normal reaction of pupils, equal size. Conjunctiva pink, sclera white. NOSE: Clear with pink turbinates. THROAT: No erythema or exudates. NECK: No masses, no JVD, no thyroid enlargement, no adenopathy. CHEST: No chest wall deformity. Symmetrical expansion. LUNGS: Equal air entry with scattered wheezes, improved CVS: Regular rate and rhythm, normal S1 and S2, no gallops, no murmurs, no rubs ABDOMEN: Soft, nontender. No hepatosplenomegaly, normal bowel sounds, no guarding or rigidity. EXTREMITIES: No clubbing, no edema, no cyanosis, 2+ pulses and upper and lower extremities. MUSCULOSKELETAL: Muscle strength and tone normal. SPINE: No scoliosis or deformity SKIN: No rashes CENTRAL NERVOUS SYSTEM: Alert and oriented -3. No focal deficits, tone is normal in all 4 extremities. PSYCHIATRIC: Alert and oriented -3. Appropriate affect. Intact judgment and insight. - Labs CBC & Chem 7: 04/11/18 09:07 04/11/18 09:07 Labs: Abnormal Lab Results - Last 24 Hours (Table) 04/11/18 04/12/18 04/12/18 Range/Units 20:39 07:35 12:09 POC Glucose (mg/dL) 302 H 239 H 231 H (75-99) mg/dL Microbiology - Last 24 Hours (Table) 04/10/18 13:14 Urine Culture - Final Urine,Clean Catch 04/10/18 13:14 Blood Culture - Preliminary Blood No Growth after 24 hours Assessment and Plan Plan: Assessment: #1. Acute exacerbation of mild intermittent bronchial asthma. Chest x-rays in the pulmonary clinic, and those that were done in the hospital on 04/10/2018 and follow-up on 04/11/2018 did not show any evidence of acute pulmonary process #2. Fever, likely related to a viral infection, influenza screen was negative #3. Diabetes mellitus type 2 #4. Migraine headaches #5. Lifetime nonsmoker #6. Hypertension #7. Hyperlipidemia #8. Benign prostate hypertrophy Plan: Patient is improving, less wheezy less coughing. Has been treated with antibiotics, neb bronchodilators, and IV steroids, responded well to inpatient treatment, from pulmonary perspective patient is stable for discharge home today on the prednisone percent taper, oral antibiotic, nebulizer machine with treatments will be set up. Follow up with Dr. Rodriguez in the office in 7-10 days. I performed a history & physical examination of the patient and discussed their management with my nurse practitioner, Kell Samuel. I reviewed the nurse practitioner's note and agree with the documented findings and plan of care. Lung sounds are positive for diffuse wheezes throughout the lung burgos. The findings and the impression was discussed with the patient. I attest to the documentation by the nurse practitioner. Time with Patient: Less than 30
[2018-04-12] MEDS ORDERED: LEVOFLOXACIN 500 MG TAB PO STA (13:37)
--- NOTE | 2018-04-12 14:10 | P.DS ---
Providers Date of admission: 04/10/18 16:16 Expected date of discharge: 04/12/18 Attending physician: Braden Gonzalez Consults: 04/10/18 16:14 Consult Physician Routine Consulting Provider: Kelvin Bourne Consult Reason/Comments: Asthma Do you want consulting provider notified?: Yes Primary care physician: Braden Gonzalez dictation of discharge summary date of service 04/12/2018. Final diagnoses: #1 acute asthmatic bronchitis with a his exacerbation. #2 hyperglycemia secondary to steroid covered with insulin. #3 migraine headaches chronic. #4 hypertension controlled #5 diabetes mellitus with the hemoglobin A1c 7.1. Presentation on admission to emergency room: Patient was sent from Dr. Bourne office the pulmonary and critical care to the emergency room for admission with the underlying severe shortness of breath and tightness of the chest due to asthma with the asthmatic bronchitis exacerbation. Hospital course: Dr. Ross in the emergency room so the patient and try inhalation therapy with no resolution, subsequently patient admitted to the hospital for further IV steroids and bronchodilator. His chest x-ray was negative for pneumonia. Urine culture negative and the blood culture was negative Patient requested to go home due to the incidence of his mother lost night and the need for for further arrangement and he will be continuing the treatment as outpatient. Kxge-wv-[id number] examination: patient's conscious alert oriented 3 ambulatory his at bedside. Temperature 97.1 orally pulse rate 76 and regular respiratory rate 18/m, blood pressure 125/60 with the pulse ox 97%. The head was normocephalic and atraumatic, pupil was equal reactive, conjunctiva was pink, normal hearing, no nasal discharge, oropharynx is normal. Neck was supple no JVD no thyromegaly no lymphadenopathy trachea midline.. Chest: Inspiratory expiratory wheezes improved however not completely resolved, patient will be continuing nebulizers at home as well as bronchodilator and steroid. Heart regular sinus rhythm. Abdomen soft positive bowel sounds no tenderness in the 4 quadrant. Extremities: No edema. Pulses bilateral. Neurologically: No lateralizing sign ambulatory no tremors. Assessment and plan: Patient will be started using the nebulizers at home with the DuoNeb 4 times a day. Using also budesonide nebulizers 0.5 mg twice a day. Medrol dosepak as directed #1 Levaquin 500 mg daily for 5 days 1 dose today. Follow-up in the office in 1-2 days or acutely if he has any farther exacerbation. Patient stable on the discharge. Plan - Discharge Summary Discharge Rx Participant: No New Discharge Prescriptions: New Budesonide [Pulmicort] 0.5 mg INHALATION RT-BID #60 nebu Formoterol Fumarate [Perforomist] 20 mcg INHALATION RT-BID #1 nebu Ipratropium-Albuterol Nebulize [Duoneb 0.5 mg-3 mg/3 ml Soln] 3 ml INHALATION RT-QID PRN #120 ampul.neb PRN Reason: Shortness Of Breath Or Wheezing Levofloxacin [Levaquin] 500 mg PO ONCE #5 tab methylPREDNISolone Dose Pack [Medrol Dose Pack] 24 mg PO DAILY #1 tab Continue Naratriptan HCl [Naratriptan] 2.5 mg PO DAILY PRN PRN Reason: Migraine Headache Swumdgccmh-BMB-Dtibqxk-Codeine [Fiorinal w/Cod 50-755-79-30MG] 1 tab PO BID PRN PRN Reason: Migraine Headache sitaGLIPtin PHOS/metFORMIN HCL [Janumet 50-1,000 mg Tablet] 1 tab PO DAILY Rosuvastatin [Crestor] 10 mg PO DAILY Losartan Potassium 100 mg PO DAILY Discharge Medication List Mjswkupfxf-IYN-Ritkvuv-Codeine [Fiorinal w/Cod 41-087-88-30MG] 1 tab PO BID PRN 05/17/16 [History] Naratriptan HCl [Naratriptan] 2.5 mg PO DAILY PRN 05/17/16 [History] Losartan Potassium 100 mg PO DAILY 04/10/18 [History] Rosuvastatin [Crestor] 10 mg PO DAILY 04/10/18 [History] sitaGLIPtin PHOS/metFORMIN HCL [Janumet 50-1,000 mg Tablet] 1 tab PO DAILY 04/10 [History] Budesonide [Pulmicort] 0.5 mg INHALATION RT-BID #60 nebu 04/12/18 [Rx] Formoterol Fumarate [Perforomist] 20 mcg INHALATION RT-BID #1 nebu 04/12/18 [Rx] Ipratropium-Albuterol Nebulize [Duoneb 0.5 mg-3 mg/3 ml Soln] 3 ml INHALATION RT -QID PRN #120 ampul.neb 04/12/18 [Rx] Levofloxacin [Levaquin] 500 mg PO ONCE #5 tab 04/12/18 [Rx] methylPREDNISolone Dose Pack [Medrol Dose Pack] 24 mg PO DAILY #1 tab 04/12/18 [ Rx] Follow up Appointment(s)/Referral(s): [facility],Equipment [NON-STAFF] - (Supplied Nebulizer) Braden Gonzalez MD [Primary Care Provider] - 1-2 days Patient Instructions/Handouts: Acute Bronchitis (GEN) Activity/Diet/Wound Care/Special Instructions: Cardiac, diabetic diet. Activity limited till follow up. Discharge Disposition: HOME SELF-CARE
[2018-04-13] MEDS ORDERED: methylPREDNISolone 4 MG TAB TAPER PO SCH (09:00)
== END 2018-04-12 14:05 | disposition home or self-care (01) | DRG 203 ==
LOC: EC 11:53 → 4MS4W 16:16
PROVIDERS: ADMIT Internal Medicine; ATTEND Internal Medicine
DX: J45.21 Mild intermittent asthma with (acute) exacerbation (principal); E11.65 Type 2 diabetes mellitus with hyperglycemia; T38.0X5A Adverse effect of glucocorticoids and synthetic analogues, initial encounter; B34.9 Viral infection, unspecified; I10 Essential (primary) hypertension; E78.5 Hyperlipidemia, unspecified; N40.0 Benign prostatic hyperplasia without lower urinary tract symptoms; E55.9 Vitamin D deficiency, unspecified; G43.909 Migraine, unspecified, not intractable, without status migrainosus; Z79.1 Long term (current) use of non-steroidal anti-inflammatories (NSAID); Z79.899 Other long term (current) drug therapy; Z87.19 Personal history of other diseases of the digestive system; Z88.0 Allergy status to penicillin; Z88.8 Allergy status to other drugs, medicaments and biological substances; Z80.3 Family history of malignant neoplasm of breast
CPT/HCPCS: 36415; 71046; 80053; 81001; 83036; 83605; 83735; 84484; 85025; 85610; 85730; 86684; 87040; 87086; 87502; 93005; 94640; 94760; 96361; 96365; 96366; 96367; 96375; 99291

== ENCOUNTER → 2018-06-28 | Outpatient (CLI) | payer BC ==
[2018-06-28 13:15] LABS: Basophils # (A) 0.1 k/uL (0-0.2); Basophils % (A) 1 %; Eosinophils # (A) 0.2 k/uL (0-0.7); Eosinophils % (A) 3 %; HCT 42.8 % (39.0-53.0); HGB 14.3 gm/dL (13.0-17.5); Lymphocytes # (A) 1.5 k/uL (1.0-4.8); Lymphocytes % (A) 21 %; MCH 30.7 pg (25.0-35.0); MCHC 33.4 g/dL (31.0-37.0); MCV 91.8 fL (80.0-100.0); Mean Platelet Volume 8.4; Monocytes # (A) 0.5 k/uL (0-1.0); Monocytes % (A) 6 %; Neutrophils # (A) 4.9 k/uL (1.3-7.7); Neutrophils % (A) 67 %; Platelet Count 223 k/uL (150-450); RBC 4.67 m/uL (4.30-5.90); RDW 14.4 % (11.5-15.5); WBC 7.3 k/uL (3.8-10.6)
[2018-06-28 14:46] LABS: Total Eosinophil Count 219 #EOS/uL (150-300)
[2018-06-28 19:58] LABS: Cat Epith & Dander IgE <0.10 kU/L; Dermato. farinae IgE <0.10 kU/L; Dog Dander IgE <0.10 kU/L
[2018-06-28 19:59] LABS: Cockroach IgE <0.10 kU/L
[2018-06-28 20:00] LABS: Alternaria alternata IgE <0.10 kU/L; Maple (Box Elder) IgE 0.55 kU/L
[2018-06-28 20:01] LABS: Birch IgE 0.21 kU/L; Elm IgE 0.16 kU/L; Oak IgE 0.58 kU/L; Ragweed,Common IgE 0.52 kU/L
[2018-06-28 20:02] LABS: Red Top (Bentgrass) IgE 3.22 kU/L
== END | disposition home or self-care (01) ==
LOC: LABWHC1 11:34
PROVIDERS: ATTEND Internal Medicine
DX: J45.40 Moderate persistent asthma, uncomplicated (principal)
CPT/HCPCS: 36415; 82785; 85008; 85025; 86003

== ENCOUNTER 2021-07-20 09:28 | Day surgery (SDC) | payer BC ==
[2021-07-16 15:46] VITALS: BMI 31.9
[~2021-07-20 09:28] MED LIST changes: +ALPRAZolam 0.25 MG TAB PO PRN; +ALPRAZolam 0.5 MG TAB PO PRN; +ASPIRIN 325 MG TAB PO ONE; +ATORVASTATIN 80 MG TAB PO ONE; +HEPARIN SODIUM,PORCINE 10,000 UNIT in SODIUM CHLORIDE 0.9% 1,000 ML IRRIGATION PRN; +HEPARIN SODIUM,PORCINE 2,500 UNIT in SODIUM CHLORIDE 0.9% 250 ML IRRIGATION PRN; -LACTATED RINGERS 1,000 ML IV SCH; -LIDOCAINE 1% 20 ML VIAL (10MG/ML) FOR IV START INTRADERMA PRN; +NITROGLYCERIN SL TABS 0.4 MG TAB SUBLINGUAL PRN
[2021-07-20] MEDS ORDERED: SODIUM CHLORIDE 0.9% 1,000 ML IV ONE (09:30)
[2021-07-20 09:51] LABS: Glucose,Whole Blood 193 mg/dL (75-99)
[2021-07-20 09:54] VITALS: TEMP 98.2
[2021-07-20] MEDS ORDERED: LOSARTAN 50 MG TAB PO STA (10:17)
[2021-07-20] MEDS ORDERED: HEPARIN SODIUM 1,000 UN/ML (10ML VL) ONE (10:21)
[2021-07-20] MEDS ORDERED: VERAPAMIL 2.5 MG/ML 2 ML AMP ONE (10:21)
[2021-07-20] MEDS ORDERED: MIDAZOLAM 2 MG/2 ML VIAL IV ONE (10:58)
[2021-07-20] MEDS ORDERED: LIDOCAINE 1% INJ 10MG/ML (5 ML VIAL-PF) SQ ONE (10:59)
[2021-07-20] MEDS: VERAPAMIL SYRINGE (5 MG/10 ML) INTRAARTER ONE ×2 (11:01→11:25)
[2021-07-20] MEDS: HEPARIN SODIUM 1,000 UN/ML (10ML VL) IV ONE ×3 (11:03→11:30)
[2021-07-20] MEDS ORDERED: TICAGRELOR 90 MG TAB ONE (11:21)
[2021-07-20] MEDS ORDERED: TICAGRELOR 90 MG TAB PO ONE (11:22)
[2021-07-20] MEDS ORDERED: IOPAMIDOL-370 100ML BTL INJ ONE ×2 (11:34→11:49)
[2021-07-20] MEDS ORDERED: NITROGLYCERIN 1000MCG/10ML SYRINGE INTRACORON ONE (11:45)
[2021-07-20] MEDS ORDERED: IPRATROPIUM-ALBUTEROL 3 ML NEB INHALATION PRN (11:58)
[2021-07-20] MEDS ORDERED: [UNRECOGNIZED DRUG - OTHER] PO PRN (11:58)
[2021-07-20] MEDS ORDERED: SUMAtriptan succinate 50 MG TAB PO PRN (11:58)
[2021-07-20] MEDS ORDERED: RX INFO: IV CONTRAST WAS GIVEN 1 EACH MISC MISCELLANE PRN (11:59)
[2021-07-20] MEDS ORDERED: MAG HYDROX/AL HYDROX/SIMETH 30 ML CUP PO PRN (11:59)
[2021-07-20] MEDS ORDERED: ZOLPIDEM 5 MG TAB PO PRN (11:59)
[2021-07-20] MEDS ORDERED: ATROPINE SULFATE 0.1 MG/ML 10ML SYRINGE IV PRN (11:59)
[2021-07-20] MEDS ORDERED: FREMANEZUMAB VFRM 225 MG/1.5 ML SQ SCH (12:00)
[2021-07-20] MEDS ORDERED: AUTO INJCT SQ SCH (12:00)
[2021-07-20] MEDS ORDERED: SODIUM CHLORIDE 0.9% 1,000 ML in EMPTY BAG 1 BAG IV SCH (12:00)
[2021-07-20 16:07] VITALS: BP 142/62
[2021-07-20 17:50] VITALS: PULSE 56; RESP 16
--- NOTE | 2021-07-20 19:53 | CC ---
CARDIAC CATHETERIZATION REPORT DATE OF SERVICE: 07/20/2021. PROCEDURE: 1. Left heart catheterization and coronary angiography. 2. Percutaneous transluminal coronary angioplasty and stenting of mid LAD with a drug- eluting stent. PERFORMED BY: Dr. Eveline Garcias. Moderate conscious sedation time was 50 minutes. Patient was administered Versed. His oxygen saturation, hemodynamics and EKG were monitored closely. CLINICAL INFORMATION: Mr. Yuan Shah is a 61-year-old gentleman with history of type 2 diabetes, hypertension, hyperlipidemia, who has been having symptoms suggestive of angina with moderate effort and had a positive stress test with evidence of ischemia in the LAD distribution at 9 minutes of exercise. He was advised cardiac catheterization after due discussion regarding risks, benefits and options. PROCEDURE NOTE: Under local anesthesia and strict aseptic precautions, a 6-Bulgarian introducer was placed in the right radial artery. Using a JL3.5 and JR4 catheters I performed coronary angiography, and the same right catheter was used to check LV pressures, but LV gram was not performed. Following the cardiac catheterization I proceeded to perform intervention of mid LAD lesion with a drug-eluting stent with a good result. Then, following the PCI, the sheath was taken out and TR band applied as per protocol with saturation in the fingers of the right hand of about 93%. Patient tolerated procedure well without complications. CARDIAC CATHETERIZATION FINDINGS: Left ventricular end-diastolic pressure was about 11 mmHg without any gradient across the aortic valve. CORONARY ANGIOGRAPHY FINDINGS: LEFT MAIN CORONARY ARTERY: Short, patent, disease-free vessel that bifurcates into LAD and circumflex. No significant disease in left main. LEFT ANTERIOR DESCENDING CORONARY ARTERY: Good-caliber vessel gives off a small septal branch and a good-sized diagonal branch, and just before the diagonal branch there is about a 35% to 40% narrowing. After the diagonal branch there is a 95% narrowing, then the LAD caliber decreases. There is mild diffuse disease throughout of about 30% to 35% and the vessel runs all the way to the apex, supplying a sizable amount of myocardium. The mid LAD therefore has a 95% or more stenosis after a major diagonal branch. LEFT POSTERIOR CIRCUMFLEX CORONARY ARTERY: Nondominant vessel gives off a good-sized obtuse marginal that has minor irregularities, no significant disease. The circumflex then runs in the AV groove and comes out as a distal posterolateral branch. No significant disease. RIGHT CORONARY ARTERY: Dominant vessel, tortuous. No significant disease. Distally it bifurcates into a large PLV and small PDA. There are minor irregularities. No significant disease. FINAL IMPRESSION: This patient has a right-dominant system, normal filling pressures. No gradient across aortic valve. There is a 95% mid LAD lesion. Circumflex and RCA are free of significant disease. Left main is free of significant disease. RECOMMENDATIONS: I recommended PCI of LAD and proceeded to perform this in the same setting. PCI PROCEDURE DETAILS: I used a JL3.0 guide catheter initially, but I had difficulty with guide support. I switched over to an XB LAD 3.5 guide catheter. With this I was able to get decent guide support. A run-through wire was used to cross the lesion in the LAD. A 2.5 caliber 12 mm long NC Trek balloon was used to pre-dilate the lesion. I then deployed a 3.25 caliber 12 mm long Xience stent at 12 atmospheres. Patient had anterior ST elevation, but no significant chest pain. Excellent angiographic result was achieved without complication. The sheath was taken out and TR band applied as per protocol. Patient received intravenous heparin. ACT was 267. He received 180 mg of Brilinta orally. Results were discussed with the patient, and children. Excellent angiographic result without complication was achieved. I expect he will be discharged later on today and I will see him in the office in a week. MMODL / IJN: [id number] /
[2021-07-20] MEDS ORDERED: FORMOTEROL FUMARATE 20 MCG/2 ML NEBU INHALATION SCH (20:00)
[2021-07-20] MEDS ORDERED: BUDESONIDE 0.5 MG/2 ML NEBU INHALATION SCH (20:00)
[2021-07-20] MEDS ORDERED: TICAGRELOR 90 MG TAB PO SCH (21:00)
[2021-07-21] MEDS ORDERED: NON FORMULARY DRUG (Aspirin [Adult Low Dose Aspirin Ec] 81 MG Tablet) PO SCH (09:00)
[2021-07-21] MEDS ORDERED: ATORVASTATIN 40 MG TAB PO SCH (09:00)
[2021-07-21] MEDS ORDERED: ASPIRIN 81 MG PO SCH (09:00)
[2021-07-21] MEDS ORDERED: LOSARTAN 50 MG TAB PO SCH (09:00)
== END 2021-07-20 17:35 | disposition home or self-care (01) ==
LOC: CATHCVL 09:28
PROVIDERS: ATTEND Internal Medicine Interventional Cardiology
DX: I25.10 Atherosclerotic heart disease of native coronary artery without angina pectoris (principal); I10 Essential (primary) hypertension; E11.9 Type 2 diabetes mellitus without complications; E78.2 Mixed hyperlipidemia; Z20.822 Contact with and (suspected) exposure to COVID-19; Z79.899 Other long term (current) drug therapy; Z79.82 Long term (current) use of aspirin; Z79.84 Long term (current) use of oral hypoglycemic drugs; Z79.51 Long term (current) use of inhaled steroids
CPT/HCPCS: 93458; 87635; C9600; C1887 ×2; C1894; C1725; C1769; C1874; J2250; J2001; J1644; Q9967

== ENCOUNTER → 2023-07-21 | Outpatient (CLI) | payer BC ==
--- NOTE | 2023-07-25 14:09 | CT ---
EXAMINATION TYPE: CT soft tissue neck wo con CT DLP: 446.3 mGycm, Automated exposure control for dose reduction was used. DATE OF EXAM: 07/21/2023 6:10 PM COMPARISON: None. CLINICAL INDICATION:Male, 63 years old with history of R06.1 STRIDOR R06.2 WHEEZING; PHH, Wheezing x 4 months TECHNIQUE: Standard enhanced CT of the neck. Axial sections with coronal and sagittal reformats were obtained. Contrast used: mL of , (None if empty) Oral contrast used: (None if empty) FINDINGS: Brain: Visualized portions are grossly unremarkable. Orbits: Unremarkable Sinuses: Mucosal thickening most proximal in the bilateral maxillary sinuses. Scattered ethmoid air c ell mucosal thickening/secretions are also present. Spaces of the neck: Clear and symmetric. Musculoskeletal: No acute osseous pathology. Lymph nodes: Multiple nonenlarged lymph nodes are seen along both anterior chains of the neck. Vascular structures: No evidence of aneurysm. Thoracic Inlet/airway: Airway is patent. The lung apices are clear. Soft tissues/Thyroid: Thyroid and remainder of the soft tissues are unremarkable. Other: none. IMPRESSION The airways patent. No evidence for acute process. No evidence for lymphadenopathy or evidence for ma ss.
== END | disposition home or self-care (01) ==
LOC: RADCTMAIN 16:41
PROVIDERS: ATTEND Internal Medicine
DX: R06.1 Stridor (principal); R06.2 Wheezing
CPT/HCPCS: 70490

== ENCOUNTER 2023-08-03 01:38 | Emergency (ER) | payer BC ==
[2023-08-03 02:25] LABS: Appearance,Urine Clear (Clear); Bilirubin Confirmation, Urine Negative (Negative); Bilirubin,Urine Negative (Negative); Blood,Urine Small (Negative); Color,Urine Yellow; Glucose,Urine (UA) 4+ (Negative); Ketones,Urine Negative (Negative); PH, Urine 5.5 (5.0-8.0); Protein,Urine Trace (Negative); Specific Gravity,Urine 1.022 (1.001-1.035); Urobilinogen,Urine <2.0 mg/dL (<2.0)
[2023-08-03 02:26] LABS: Leukocyte Esterase,Urine Negative (Negative); Nitrite,Urine Negative (Negative)
[2023-08-03 02:31] LABS: Glucose,Whole Blood 180 mg/dL (70-110)
--- NOTE | 2023-08-03 02:41 | ED ---
Male Urogenital HPI - General Chief complaint: Urogenital Stated complaint: Cath issues Time Seen by Provider: 08/03/23 01:51 Source: patient Mode of arrival: ambulatory - History of Present Illness Initial comments: 63-year-old male presenting with chief complaint of urinary retention. Patient had a Triana catheter placed by his PCP last week for urinary retention, he saw urologist Dr. Dumas yesterday who remove the catheter. This evening he is having suprapubic pressure and has not been able to urinate on his own. No fevers. No nausea or vomiting. - Related Data Home Medications Medication Instructions Recorded Confirmed Naratriptan HCl [Naratriptan] 2.5 mg PO DAILY PRN 05/17/16 07/16/21 Losartan Potassium 100 mg PO DAILY 04/10/18 07/20/21 Rosuvastatin [Crestor] 10 mg PO DAILY 04/10/18 07/20/21 Aspirin [Adult Low Dose Aspirin EC] 81 mg PO DAILY 07/16/21 07/20/21 Fremanezumab-Vfrm [Ajovy 1 syr SQ QMONTHLY 07/20/21 07/20/21 Autoinjector] Previous Rx's Medication Instructions Recorded Budesonide [Pulmicort] 0.5 mg INHALATION RT-BID #60 nebu 04/12/18 Formoterol Fumarate [Perforomist] 20 mcg INHALATION RT-BID #1 nebu 04/12/18 Ipratropium-Albuterol Nebulize 3 ml INHALATION RT-QID PRN #120 04/12/18 [Duoneb 0.5 mg-3 mg/3 ml Soln] ampul.neb Aspirin 81 mg PO DAILY #0 chew 07/20/21 Sgbnqydeat-JXQ-Vuaqjtl-Codeine 1 tab PO BID PRN 07/20/21 Nitroglycerin Sl Tabs [Nitrostat] 0.4 mg SUBLINGUAL Q5M PRN #25 tab 07/20/21 Ticagrelor [Brilinta] 90 mg PO BID 30 Days #60 tablet 07/20/21 sitaGLIPtin PHOS/metFORMIN HCL 1 tab PO DAILY #0 07/20/21 [Janumet 50-1,000 mg Tablet] Allergies Allergy/AdvReac Type Severity Reaction Status Date / Time ANTIBIOTIC (UNKNOWN) Allergy Unknown Uncoded 05/09/24 01:44 Review of Systems ROS Statement: Those systems with pertinent positive or pertinent negative responses have been documented in the HPI. ROS Other: All systems not noted in ROS Statement are negative. Past Medical History Past Medical History: Asthma, Diabetes Mellitus, Hyperlipidemia, Hypertension Additional Past Medical History / Comment(s): MIGRAINES, PAST HX OF ASTHMA (10 YRS AGO), COUGH FOR LAST YEAR. intermittent episodes of dysphagia had egd- gastritis , History of Any Multi-Drug Resistant Organisms: None Reported Past Surgical History: Orthopedic Surgery Additional Past Surgical History / Comment(s): MARCELA SHOULDER SURGERY, COLONOSCOPY'S, egd w/ bx-pt stated was neg Past Anesthesia/Blood Transfusion Reactions: No Reported Reaction Past Psychological History: No Psychological Hx Reported Smoking Status: Never smoker - Past Family History Mother Family Medical History: Cancer Additional Family Medical History / Comment(s): BREAST CANCER w/ mets Father Family Medical History: CVA/TIA Additional Family Medical History / Comment(s): General Exam General appearance: alert, in no apparent distress Head exam: Present: atraumatic, normocephalic Eye exam: Present: normal appearance, EOMI Neck exam: Present: normal inspection. Absent: meningismus Respiratory exam: Absent: respiratory distress Cardiovascular Exam: Present: regular rate Neurological exam: Present: alert, oriented X3 Psychiatric exam: Present: normal affect, normal mood Skin exam: Present: warm, dry Course Vital Signs 08/03/23 08/03/23 01:40 02:45 Temperature 99 F 99.1 F Pulse Rate 96 93 Respiratory 18 16 Rate Blood Pressure 132/79 131/66 O2 Sat by Pulse 96 96 Oximetry Medical Decision Making - Medical Decision Making Was pt. sent in by a medical professional or institution (, PA, HOME OFFICE CLAIMS EXAMINER, urgent care, hospital, or group home...) When possible be specific @ -No Did you speak to anyone other than the patient for history (EMS, parent, family, police, friend...)? What history was obtained from this source @ -No Did you review nursing and triage notes (agree or disagree)? Why? @ -I reviewed and agree with nursing and triage notes Were old charts reviewed (outside hosp., previous admission, EMS record, old EKG, old radiological studies, urgent care reports/EKG's, group home records)? Report findings @ -No old charts were reviewed Differential Diagnosis (chest pain, altered mental status, abdominal pain women, abdominal pain men, vaginal bleeding, weakness, fever, dyspnea, syncope, headache, dizziness, GI bleed, back pain, seizure, CVA, palpatations, mental health, musculoskeletal)? @ -Differential includes infection, BPH, malignancy, this is not an all- inclusive list EKG interpreted by me (3pts min.). @ -As above X-rays interpreted by me (1pt min.). @ -None done CT interpreted by me (1pt min.). @ -None done U/S interpreted by me (1pt. min.). @ -None done What testing was considered but not performed or refused? (CT, X-rays, U/S, labs)? Why? @ -None What meds were considered but not given or refused? Why? @ -None Did you discuss the management of the patient with other professionals (benji amin i.e. , PA, HOME OFFICE CLAIMS EXAMINER, lab, RT, psych nurse, sexual assault social worker, paramedic, teacher, plain clothes police officer, pillowcase cutter)? Give summary @ -No Was smoking cessation discussed for >3mins.? @ -No Was critical care preformed (if so, how long)? @ -No Were there social determinants of health that impacted care today? How? (Homelessness, low income, unemployed, alcoholism, drug addiction, transportation, low edu. Level, literacy, decrease access to med. care, prison, rehab)? @ -No Was there de-escalation of care discussed even if they declined (Discuss DNR or withdrawal of care, Hospice)? DNR status @ -No What co-morbidities impacted this encounter? (DM, HTN, Smoking, COPD, CAD, Cancer, CVA, ARF, Chemo, Hep., AIDS, mental health diagnosis, sleep apnea, morbid obesity)? @ -None Was patient admitted / discharged? Hospital course, mention meds given and route, prescriptions, significant lab abnormalities, going to OR and other pertinent info. @ -63-year-old male presenting with chief complaint of urinary retention. Triana catheter was placed and over 800 mL output. Urine shows 4+ glucose trace protein. Glucose is 180. Patient is educated on today's findings. He will follow-up with his urologist. Discharged home. Follow-up with PCP. Report back to ER with any new or worsening symptoms. Discussed return parameters and answered all questions. Patient conveyed verbal understanding and agreed to the plan. I discussed this case in detail with my attending Dr. Mcconnell Undiagnosed new problem with uncertain prognosis? @ -No Drug Therapy requiring intensive monitoring for toxicity (Heparin, Nitro, Insulin, Cardizem)? @ -No Were any procedures done? @ -No Diagnosis/symptom? @ -Urinary retention Acute, or Chronic, or Acute on Chronic? @ -Acute Uncomplicated (without systemic symptoms) or Complicated (systemic symptoms)? @ -Uncomplicated Side effects of treatment? @ -No Exacerbation, Progression, or Severe Exacerbation? @ -No Poses a threat to life or bodily function? How? (Chest pain, [place], [place], pneumonia, PE, COPD, DKA, ARF, appy, cholecystitis, CVA, Diverticulitis, Homicidal, Suicidal, threat to staff... and all critical care pts) @ -No - Lab Data Lab Results 08/03/23 08/03/23 Range/Units 01:50 02:30 POC Glucose (mg/dL) 180 H (70-110) mg/dL POC Glu Shed Boss ID Monserrat Hawkins Urine Color Yellow Urine Appearance Clear (Clear) Urine pH 5.5 (5.0-8.0) Ur Specific Romeo 1.022 (1.001-1.035) Urine Protein Trace H (Negative) Urine Glucose (UA) 4+ H (Negative) Urine Ketones Negative (Negative) Urine Blood Small (Negative) Urine Nitrite Negative (Negative) Urine Bilirubin Negative (Negative) Ur Bilirubin Confirm Negative (Negative) Urine Urobilinogen <2.0 (<2.0) mg/dL Ur Leukocyte Esterase Negative (Negative) Disposition Clinical Impression: Urinary retention Disposition: HOME SELF-CARE Condition: Good Instructions (If sedation given, give patient instructions): Urinary Retention in Men (ED) Additional Instructions: Follow-up with your PCP and urologist. Report back to ER with any new or worsening symptoms. Is patient prescribed a controlled substance at d/c from ED?: No Referrals: Braden Gonzalez MD [Primary Care Provider] - 1-2 days Tom Dumas MD [STAFF PHYSICIAN] - 1-2 days Time of Disposition: 02:41
[2023-08-03 03:14] VITALS: BP 131/66; PULSE 93; RESP 16; TEMP 99.1
== END 2023-08-03 02:52 | disposition home or self-care (01) ==
LOC: EC 01:38
DX: R33.9 Retention of urine, unspecified (principal); Z88.1 Allergy status to other antibiotic agents
CPT/HCPCS: 36415; 51702; 51798; 81001; 99284